=== PATIENT | female | born 1965 | race Caucasian/White ===

== ENCOUNTER 2016-08-03 08:30 | Outpatient (CLI) | payer OTHER ==
--- NOTE | 2016-08-03 11:18 | DIAGNOSTIC IMAGING REPORT ---
PROCEDURE: XR HIP 2VW W W/O AP PELVIS-RT INDICATION: RIGHT HIP PX TECHNIQUE: AP view of the pelvis and hips with lateral view of the right hip. COMPARISON: None. FINDINGS: Right HIP: Osseous structures and joint spaces are normal. PELVIS: Osseous pelvis is normal. IMPRESSION: 1. Negative pelvis and right hip.
== END 2016-08-03 23:00 ==
LOC: XR SRH 08:30
DX: M25.551 Pain in right hip (principal)

== ENCOUNTER 2016-10-12 12:37 | Outpatient (CLI) | payer OTHER ==
--- NOTE | 2016-10-12 14:33 | DIAGNOSTIC IMAGING REPORT ---
PROCEDURE: XR WRIST MIN 3 VIEWS - RIGHT INDICATION: RIGHT WRIST PAIN TECHNIQUE: Four views of the right wrist. COMPARISON: None. FINDINGS: Probable incomplete fracture of the distal radius. There is a dorsal angulation of the distal radius. Cast material obscures the bony detail. No suspicious soft-tissue calcification or radiodense foreign bodies. IMPRESSION: 1. Probable incomplete fracture of the distal radius.
== END 2016-10-12 23:00 ==
LOC: XR SRH 12:37
DX: M25.531 Pain in right wrist (principal); R93.7 Abnormal findings on diagnostic imaging of other parts of musculoskeletal system